=== PATIENT | female | born 1980 | race Hispanic/Latino ===

== ENCOUNTER 2024-05-23 19:55 | Emergency (ER) | payer BC ==
[~2024-05-23] VITALS: Ht 170.2 cm; Wt 83.6 kg
[2024-05-23 20:03] VITALS: TEMP 97.8
[2024-05-23 21:10] LABS: BASO % 0.3 % (0.0-1.0); EOS # 0.1 10^3/uL (0.0-0.5); EOS % 0.9 % (0.0-3.0); HEMATOCRIT 35.1 % (36.0-47.0); HEMOGLOBIN 11.8 g/dl (12.0-15.5); LYMPH # 1.6 10^3/uL (1.5-5.0); LYMPH % 13.8 % (24.0-44.0); MEAN CORPUSCULAR HEMOGLOBIN 29.6 pg (27.0-33.0); MEAN CORPUSCULAR HGB CONC 33.6 g/dl (32.0-36.5); MONO # 1.3 10^3/uL (0.0-0.8); MONO % 11.5 % (2.0-8.0); NEUTROPHILS # 8.2 10^3/uL (1.5-8.5); NEUTROPHILS % 72.9 % (36.0-66.0); PLATELET COUNT, AUTOMATED 249 10^3/uL (150-450); RED BLOOD COUNT 3.99 10^6/uL (4.00-5.40); WHITE BLOOD COUNT 11.3 10^3/uL (4.0-10.0)
[2024-05-23 21:18] LABS: LIPASE 26 U/L (12-53)
[2024-05-23 21:20] LABS: ALBUMIN 3.1 G/DL (3.2-5.2); ALKALINE PHOSPHATASE 94 U/L (35-104); ALT/SGPT 25 U/L (7.0-40); AST/SGOT 18 U/L (<34); BILIRUBIN,DIRECT < 0.1 MG/DL (<0.4); BILIRUBIN,TOTAL 0.3 MG/DL (0.3-1.2); BLOOD UREA NITROGEN 12 MG/DL (9-23); CALCIUM LEVEL 8.7 MG/DL (8.5-10.1); CARBON DIOXIDE LEVEL 26 MMOL/L (20-31); CHLORIDE LEVEL 105 MMOL/L (98-107); CREATININE FOR GFR 0.65 MG/DL (0.55-1.30); GLOMERULAR FILTRATION RATE > 60.0 (>58); GLUCOSE, FASTING 94 MG/DL (60-100); POTASSIUM SERUM 3.9 MMOL/L (3.5-5.1); SODIUM LEVEL 137 MMOL/L (136-145)
[2024-05-23 21:25] LABS: HCG, SERUM QUALITATIVE NEGATIVE (NEGATIVE)
[2024-05-23] MEDS ORDERED: ISOVUE-370 76% 100ML VIAL As Ordered ONE (21:48)
[2024-05-23] MEDS: ACETAMINOPHEN *IV* 1,000 MG in IV 1 EA IV ONE (21:52)
[2024-05-23] MEDS: KETOROLAC 30 MG/ML 1ML VIAL IV ONE (21:52)
[2024-05-23] MEDS: ONDANSETRON 4MG 2ML VIAL IV ONE (21:52)
[2024-05-23] MEDS ORDERED: MIRA3350 PO (22:38)
[2024-05-23] MEDS ORDERED: CEFD1CAP9 PO (22:38)
[2024-05-23] MEDS: cefTRIAXone SOD 1 GM in DEXTROSE 5% (D5W) ADV/MINI-BAG 50 ML IV ONE (22:46)
[2024-05-23 23:30] VITALS: BP 95/59; O2SAT 98
== END 2024-05-23 23:47 | disposition home or self-care (01) ==
LOC: M ED 19:55
DX: N10 Acute pyelonephritis (principal); I10 Essential (primary) hypertension; Z79.2 Long term (current) use of antibiotics
CPT/HCPCS: 74177; 80047; 80048; 80076; 81001; 83690; 84703; 85025; 96365; 96375; 99285; J0131; J0696; J1885; J2405; Q9967